=== PATIENT | female | born 1975 ===

== ENCOUNTER → 2018-09-02 | Outpatient (CLI) | payer BC, OTHER ==
[2018-09-06 15:07] LABS: HPV 16 Negative (Negative); HPV 18 Negative (Negative); HPV OTHER HR TYPES Negative (Negative)
== END | disposition home or self-care (01) ==
LOC: LAB SHORT 18:30 → LAB 18:30
PROVIDERS: Nurse Practitioner Family
DX: Z12.4 Encounter for screening for malignant neoplasm of cervix (principal)
CPT/HCPCS: 87624; G0123

== ENCOUNTER 2018-09-17 11:15 | Day surgery (SDC) | payer BC, OTHER ==
[~2018-09-17] VITALS: Wt 78.0 kg
[~2018-09-17 11:15] MED LIST: TOPI100 PO
--- NOTE | 2018-09-17 12:15 | NUR ---
PT ADMITTED TO [facility]. AGREES WITH PLANNED PROCEDURE. STATES LAST BM CLEAR. LUNG SOUNDS CLEAR. PT STATES SHE HAS HAD A TUBAL LIGATION.
--- NOTE | 2018-09-17 12:40 | NUR ---
09/17/18 1240 Susie Roche History, Chart, Medications and Allergies reviewed before start of procedure. Patient confirms NPO status and agrees with scheduled surgery. Patient admits to sips of water this morning. Dr. Collins notified. 3-LEAD EKG REVIEWED WITH PHYSICIAN PRIOR TO START OF PROCEDURE. MONITOR INTACT WITH CONTINUOUS PULSE OXIMETRY AND INTERMITTENT BP. PATIENT DETERMINED TO BE ASA APPROPRIATE FOR PROPOFOL SEDATION PRIOR TO START OF PROCEDURE BY DR. COLLINS.
--- NOTE | 2018-09-17 14:16 | NUR ---
UP TO DRESS. GAIT STEADY. VSS. TOLERATED JUICE. C/O 2/10 TOLERABLE BLOATING CRAMPIN TO ABD. ENCOURAGED TO PASS AIR. Discharge instructions reviewed with patient. Patient verbalizes understanding. Copy given to patient to take home. Patient States Post-Procedure ride home has been arranged with her mom.
== END 2018-09-17 14:18 | disposition home or self-care (01) ==
LOC: ORSCMMR 11:15 → ORD 13:00 → ORSCMMR 14:18
PROVIDERS: Internal Medicine Gastroenterology
PROC: 0DB58ZX Excision of Esophagus, Via Natural or Artificial Opening Endoscopic, Diagnostic (ICD-10-PCS; principal; 2018-09-17 13:00)
PROC: 0D758ZZ Dilation of Esophagus, Via Natural or Artificial Opening Endoscopic (ICD-10-PCS; principal; 2018-09-17 13:00)
PROC: 0DB68ZX Excision of Stomach, Via Natural or Artificial Opening Endoscopic, Diagnostic (ICD-10-PCS; principal; 2018-09-17 13:00)
PROC: 0DBE8ZX Excision of Large Intestine, Via Natural or Artificial Opening Endoscopic, Diagnostic (ICD-10-PCS; principal; 2018-09-17 13:00)
DX: R13.10 Dysphagia, unspecified (principal); Z12.11 Encounter for screening for malignant neoplasm of colon; Z80.0 Family history of malignant neoplasm of digestive organs; K25.9 Gastric ulcer, unspecified as acute or chronic, without hemorrhage or perforation; R56.9 Unspecified convulsions; K64.8 Other hemorrhoids; K22.2 Esophageal obstruction; K57.30 Diverticulosis of large intestine without perforation or abscess without bleeding; Z79.899 Other long term (current) drug therapy
CPT/HCPCS: 88305; 88342; C1726; J2250; J2704; J7120

== ENCOUNTER 2018-11-22 09:09 | Day surgery (SDC) | payer BC, OTHER ==
[~2018-11-22] VITALS: Ht 162.6 cm; Wt 77.3 kg
[2018-11-22] MEDS ORDERED: PANT40 (10:12)
[2018-11-22] MEDS ORDERED: Celexa10 MG (10:12)
[2018-11-22] MEDS ORDERED: CENTRUM SILVER1 EAC2 (10:12)
--- NOTE | 2018-11-22 14:57 | NUR ---
11/22/18 1457 Santana Umanzor DISCHARGE INSTRUCTIONS REVIEWED WITH PT. TOLERATING PO FLUIDS WELL. VSS.
== END 2018-11-22 11:27 | disposition home or self-care (01) ==
LOC: ORSCSDS 09:09
PROVIDERS: Internal Medicine Gastroenterology
PROC: 0DJ08ZZ Inspection of Upper Intestinal Tract, Via Natural or Artificial Opening Endoscopic (ICD-10-PCS; principal; 2018-11-22 10:30)
DX: Z87.11 Personal history of peptic ulcer disease (principal); R56.9 Unspecified convulsions; Z79.899 Other long term (current) drug therapy
CPT/HCPCS: J2704; J7120

== ENCOUNTER → 2019-04-07 | Outpatient (CLI) | payer BC, OTHER ==
[~2019-04-07] MED LIST changes: +CENTRUM SILVER1 EAC2; +Celexa10 MG; +PANT40
== END | disposition home or self-care (01) ==
LOC: LAB 19:18 → LAB SHORT 19:18
DX: R30.0 Dysuria (principal)
CPT/HCPCS: 87077; 87086; 87186